=== PATIENT | female | born 1960 | race Caucasian/White ===

== ENCOUNTER 2018-03-02 07:03 | Outpatient (CLI) | payer BC ==
--- NOTE | 2018-03-02 12:58 | NM ---
NUCLEAR MEDICINE CARDIAC PERFUSION EXAMINATION WITH EJECTION FRACTION: HISTORY: This is a 57-year-old female with shortness of breath, hypertension, diabetes, and dyslipidemia. TECHNIQUE: A stress only nuclear medicine cardiac perfusion examination was performed using 32.7 millicuries of technetium 99m sestamibi and Lexiscan. FINDINGS: Tomographic images without attenuation correction show no perfusion defects with stress. Gated images show normal wall motion with an ejection fraction of greater than 70%. EDV is 76 mL. L HR is 0.5. IMPRESSION: No perfusion defect seen with stress. POS: LINO
[2018-03-02] MEDS ORDERED: Regadenoson 0.4 MG/5 ML SYRINGE ONE (13:44)
--- NOTE | 2018-03-09 09:28 | STRESS ---
Acquisition Time: 2018-03-02 09:04:25 Total Exercise Time: 00:01:00 Test Indications: SHORTNESS OF BREATH Medications: Protocol: LEXISCAN Max HR: 094 BPM 58% of Pred: 162 BPM Max BP: 136/078 mmHG Max Work Load: 1.0 METS THE PATIENT WAS INJECTED WITH LEXISCAN. SHE DID NOT DEVELOP CHEST PAIN. THERE WAS NO SIGNIFICANT ST DEPRESSION. AWAIT NUCLEAR IMAGES FOR DEFINTIVE DIAGNOSIS. Confirmed by HUGH WEEKS ([id number]), editor magazine KARI PEREZ ([id number]) on 03/09/2018 9:28:22 AM Referred By: ROSSI ENG Confirmed By:HUGH WEEKS
== END 2018-03-02 07:04 | disposition home or self-care (01) ==
LOC: NM 07:03
PROVIDERS: ATTEND Physician Assistant
DX: R06.02 Shortness of breath (principal)
CPT/HCPCS: 78452; 93017; A9500; J2785

== ENCOUNTER 2020-11-02 15:10 | Outpatient (CLI) | payer BC | END 2020-11-02 15:11 | disposition home or self-care (01) | LOC: BICRAD 15:10 | PROVIDERS: ATTEND Family Medicine | DX: R07.81 Pleurodynia (principal) | CPT/HCPCS: 71046 ==

== ENCOUNTER 2025-05-27 09:58 | Outpatient (CLI) | payer MEDICARE | END 2025-05-27 09:59 | disposition home or self-care (01) | LOC: SCSULT 09:58 | PROVIDERS: ATTEND Family Medicine Sports Medicine | DX: R10.11 Right upper quadrant pain (principal); R16.0 Hepatomegaly, not elsewhere classified; E11.9 Type 2 diabetes mellitus without complications | CPT/HCPCS: 36415; 76700; 80053; 81001; 83036; 83690; 85025; 93976 ==